=== PATIENT | female | born 1935 | race Caucasian/White ===

== ENCOUNTER 2017-10-02 10:00 | Emergency (ER) | payer MEDICARE, OTHER ==
[2017-10-02] MEDS: NEOMYC/POLYMYX/BACIT 30 GM OINT TOP (11:19)
[2017-10-02] MEDS: DIPHTH/TET/ACEL PERTUSS (ADULT) 0.5 ML VIAL IM* (11:21)
== END 2017-10-02 12:23 | disposition home or self-care (01) ==
LOC: E/R 10:00
DX: S53.401A Unspecified sprain of right elbow, initial encounter (principal); I10 Essential (primary) hypertension; W01.0XXA Fall on same level from slipping, tripping and stumbling without subsequent striking against object, initial encounter; Y92.002 Bathroom of unspecified non-institutional (private) residence as the place of occurrence of the external cause; Z23 Encounter for immunization
CPT/HCPCS: 71045; 73080-RT; 90471; 90715; 99284-25

== ENCOUNTER 2018-11-13 03:00 | Observation (INO) | payer MEDICARE, OTHER ==
[2018-11-13] MEDS: DIPHTH/TET/ACEL PERTUSS (ADULT) 0.5 ML VIAL IM* (03:18)
[2018-11-13] MEDS: LIDOCAINE 4% CR TOP (03:58)
[2018-11-13] MEDS ORDERED: ACETAMINOPHEN 325 MG TAB PO (04:00)
[2018-11-13] MEDS ORDERED: ONDANSETRON 4 MG INJ IV (04:00)
[2018-11-13] MEDS: HYDROGEN PEROXIDE 118 ML TOP (04:12)
[2018-11-13 04:33] LABS: ADD MAN DIFF? NO
[2018-11-13 04:34] LABS: WHITE BLOOD COUNT 6.6 10^3/ul (4.8-10.8)
[2018-11-13 04:34] LABS: BASOPHIL # 0.1 10^3/ul (0.0-0.1); BASOPHILS % 0.9 % (0.0-2.0); EOSINOPHILS # 0.1 10^3/ul (0.0-0.5); EOSINOPHILS % 0.8 % (0.0-7.0); HEMATOCRIT 37.5 % (37.0-47.0); HEMOGLOBIN 11.9 g/dl (12.0-16.0); LYMPHOCYTES # 2.5 10^3/ul (0.8-2.9); MEAN CORPUSCULAR HEMOGLOBIN 29.6 pg (29.0-33.0); MEAN CORPUSCULAR HGB CONC 31.7 g/dl (32.0-37.0); MEAN CORPUSCULAR VOLUME 93.3 fl (82.0-101.0); MEAN PLATELET VOLUME 9.2 fl (7.4-10.4); MONOCYTE # 0.6 10^3/ul (0.3-0.9); MONOCYTES % 9.7 % (0.0-11.0); NEUTROPHIL # 3.3 10^3/ul (1.6-7.5); NEUTROPHILS % 50.3 % (39.0-77.0); PLATELET COUNT 311 10^3/UL (140-415); RED BLOOD COUNT 4.02 10^6/ul (4.20-5.40); RED CELL DISTRIBUTION WIDTH 13.9 % (11.5-14.5)
[2018-11-13 04:58] LABS: ALANINE AMINOTRANSFERASE 19 IU/L (13-69); ALBUMIN/GLOBULIN RATIO 1.48; ALKALINE PHOSPHATASE 61 IU/L (42-121); ANION GAP 9 (5-13); ASPARTATE AMINO TRANSFERASE 26 IU/L (15-46); BILIRUBIN,INDIRECT 0.4 mg/dl (0-1.1); BILIRUBIN,TOTAL 0.4 mg/dl (0.2-1.3); BLOOD UREA NITROGEN 16 mg/dl (7-20); CALCIUM 9.3 mg/dl (8.4-10.2); CARBON DIOXIDE 31 mmol/L (21-31); CHLORIDE 107 mmol/L (97-110); CREATININE 1.07 mg/dl (0.44-1.00); GLUCOSE 93 mg/dl (70-220); LIPASE 139 U/L (23-300); POTASSIUM 3.8 mmol/L (3.5-5.1); SODIUM 147 mmol/L (135-144); TOTAL PROTEIN 6.7 g/dl (6.1-8.1)
[2018-11-13] MEDS: CEFAZOLIN 1 GM/50 ML (PMX) 50 ML IVPB (12:21)
[2018-11-13] MEDS: MULTIVITAMINS THERAPEUTIC TAB PO (12:21)
[2018-11-13] MEDS: LOPERAMIDE 2 MG CAP PO (16:56)
[2018-11-13] MEDS: D5-0.2 NACL + KCL 20 MEQ 1,000 ML IV (16:56)
[2018-11-13] MEDS: LORAZEPAM 1 MG TAB PO (19:39)
[2018-11-13] MEDS: traZODone 100 MG TAB PO (19:58)
[2018-11-13] MEDS: QUETIAPINE 100 MG TAB PO (20:24)
[2018-11-13] MEDS: MIRTAZAPINE 15 MG TAB PO (20:24)
[2018-11-14] MEDS: D5-0.2 NACL + KCL 20 MEQ 1,000 ML IV (05:11)
[2018-11-14 06:05] LABS: ADD MAN DIFF? NO
[2018-11-14 06:09] LABS: BASOPHIL # 0.1 10^3/ul (0.0-0.1); BASOPHILS % 0.9 % (0.0-2.0); EOSINOPHILS # 0.1 10^3/ul (0.0-0.5); EOSINOPHILS % 1.3 % (0.0-7.0); HEMATOCRIT 32.5 % (37.0-47.0); HEMOGLOBIN 10.6 g/dl (12.0-16.0); LYMPHOCYTES # 2.3 10^3/ul (0.8-2.9); LYMPHOCYTES % 41.5 % (15.0-51.0); MEAN CORPUSCULAR HEMOGLOBIN 30.2 pg (29.0-33.0); MEAN CORPUSCULAR HGB CONC 32.6 g/dl (32.0-37.0); MEAN CORPUSCULAR VOLUME 92.6 fl (82.0-101.0); MEAN PLATELET VOLUME 9.3 fl (7.4-10.4); MONOCYTE # 0.6 10^3/ul (0.3-0.9); MONOCYTES % 10.2 % (0.0-11.0); NEUTROPHIL # 2.5 10^3/ul (1.6-7.5); NEUTROPHILS % 45.9 % (39.0-77.0); PLATELET COUNT 243 10^3/UL (140-415); RED BLOOD COUNT 3.51 10^6/ul (4.20-5.40); RED CELL DISTRIBUTION WIDTH 13.9 % (11.5-14.5)
[2018-11-14 06:09] LABS: WHITE BLOOD COUNT 5.5 10^3/ul (4.8-10.8)
[2018-11-14 06:44] LABS: ANION GAP 7 (5-13); BLOOD UREA NITROGEN 12 mg/dl (7-20); CALCIUM 8.3 mg/dl (8.4-10.2); CARBON DIOXIDE 28 mmol/L (21-31); CHLORIDE 107 mmol/L (97-110); CREATININE 0.97 mg/dl (0.44-1.00); GLUCOSE 89 mg/dl (70-220); MAGNESIUM 2.3 mg/dl (1.7-2.5); POTASSIUM 4.5 mmol/L (3.5-5.1); SODIUM 142 mmol/L (135-144)
[2018-11-14] MEDS: LAMOTRIGINE 100 MG TAB PO (09:34)
[2018-11-14] MEDS: MULTIVITAMINS THERAPEUTIC TAB PO (09:34)
== END 2018-11-14 13:29 | disposition home or self-care (01) ==
LOC: E/R 03:00 → 6WM 04:01
DX: S01.01XA Laceration without foreign body of scalp, initial encounter (principal); W19.XXXA Unspecified fall, initial encounter; Y92.002 Bathroom of unspecified non-institutional (private) residence as the place of occurrence of the external cause; E86.0 Dehydration; K52.9 Noninfective gastroenteritis and colitis, unspecified; M79.7 Fibromyalgia; F41.9 Anxiety disorder, unspecified; G47.00 Insomnia, unspecified; M85.80 Other specified disorders of bone density and structure, unspecified site; Z90.710 Acquired absence of both cervix and uterus
CPT/HCPCS: 70450; 72125; 80048; 80053; 83690; 83735; 84100; 85025; 90715; 93005; G0378